=== PATIENT | female | born 1960 | race Caucasian/White ===

== ENCOUNTER 2016-07-04 21:54 | Emergency (ER) | payer OTHER ==
--- NOTE | ~2016-07-04 | CR72 ---
[facility] A Service of [facility] & [facility] RADIOLOGY TEXT RESULTS PATIENT: JONATAN PATINO LOCATION: [facility] : 62 UNIT #: [id number] AGE: [address]: Basilio Tatum MD SEX: F ORDER DR: [id number] [facility] [address] [place], [place] [address] [id number] E MR#: [id number] Acc #: [id number] NAME: JONATAN PATINO : 1960 SEX: F STUDY DATE/TIME: 07/04/2016 22:00 UNIT: [facility] ROOM: STUDY DESCRIPTION: CR Chest Single View Portable Attending Physician: Basilio Tatum M.D. Ordering Physician: Basilio Tatum M.D. Primary Care Physician: No Primary Care Physician MEDICAL IMAGING REPORT This report is preliminary unless electronic signature is present EXAM Portable chest 1 HISTORY Right flank pain and shortness of air today. FINDINGS A single AP portable view of the chest shows both lungs to be clear. The heart is normal in size. The mediastinal contour is normal. No significant bone abnormalities are seen. IMPRESSION Normal portable chest. Dictated by... Grant Cruz M.D. THIS IS AN ELECTRONICALLY VERIFIED REPORT Grant Cruz M.D. at 07/05/2016 9:13 AM PANCHO/naila TD: 07/05/2016 01:22 JOB #: [id number] MEDICAL IMAGING REPORT Page 1 of 1 COPY
--- NOTE | ~2016-07-04 | CT16 ---
[facility] A Service of [facility] RADIOLOGY TEXT RESULTS PATIENT: JONATAN PATINO LOCATION: [facility] : 62 UNIT #: [id number] AGE: [address]: Basilio Tatum MD SEX: F ORDER DR: [id number] [facility] [address] [place], [place] [address] [id number] E MR#: [id number] Acc #: [id number] NAME: JONATAN PATINO : 1960 SEX: F STUDY DATE/TIME: 07/05/2016 00:02 UNIT: [facility] ROOM: STUDY DESCRIPTION: CT Angio Chest for PE Attending Physician: Basilio Tatum M.D. Ordering Physician: Basilio Tatum M.D. Primary Care Physician: No Primary Care Physician MEDICAL IMAGING REPORT This report is preliminary unless electronic signature is present EXAM Chest CTA 07/05 at 0002 hours INDICATIONS Shortness of air with right-side chest pain for 2 days. Elevated D-dimer today. TECHNIQUE Axial images were obtained through the chest following IV contrast administration. 3-D reformats were obtained. This CT exam was performed with one or more of the following radiation dose reduction techniques: automatic control, adjustment of mA and/or kV according to patient size, and iterative reconstruction. No comparison chest CT. FINDINGS There is no pulmonary embolism or aortic dissection. There is no pericardial effusion. There is no adenopathy. There is a trace amount of right-side pleural fluid. No left pleural effusion is seen. There is emphysema. There is infiltrate in the right lower lobe which is probably a mild degree of pneumonia. The lungs otherwise are clear. There is a small hiatal hernia. The spleen appears mildly enlarged but unchanged from 03/20/2015 CT abdomen. IMPRESSION 1. No pulmonary embolism or aortic dissection. 2. Trace right pleural effusion with minimal amount of alveolar infiltrate in the posterior right lower lobe concerning for pneumonia. 3. The lungs are emphysematous but otherwise clear. 4. Small hiatal hernia. 5. Splenomegaly which does not appear significantly changed from an abdomen CT of 03/20/2015. Dictated by... [facility] A Service of [facility] RADIOLOGY TEXT RESULTS PATIENT: JONATAN PATINO LOCATION: [facility] : 62 UNIT #: [id number] AGE: [address]: Basilio Tatum MD SEX: F ORDER DR: Basilio De Oliveira Jr., M.D. THIS IS AN ELECTRONICALLY VERIFIED REPORT Basilio De Oliveira Jr., M.D. at 07/05/2016 6:01 AM WILLIAN/naila TD: 07/05/2016 05:23 JOB #: [id number] MEDICAL IMAGING REPORT Page 1 of 1 COPY
[2016-07-04 22:46] LABS: BASOPHIL% 0.4 % (0-2.5); EOSINOPHIL# 0.1 X10e3 (0-0.7); EOSINOPHIL% 0.9 % (0.0-7.0); HEMATOCRIT 40.1 % (35.0-45.0); HEMOGLOBIN 13.4 gm/dL (12.0-16.0); LYMPHOCYTE# 1.6 X10e3 (1.0-3.5); LYMPHOCYTE% 18.5 % (17.0-45.0); MEAN CELL VOLUME 86.1 FL (83-96); MEAN CORPUSCULAR HEMOGLOBIN 28.7 PG (28-34); MEAN CORPUSCULAR HGB CONC 33.4 g/dL (30-36); MONOCYTE# 0.8 X10e3 (0-1.0); MONOCYTE% 9.2 % (3.0-12.0); NEUTROPHIL# 6.1 X10e3 (1.5-7.1); PLATELET COUNT 174 X10e3 (140-420); RED BLOOD COUNT 4.66 X10e (3.90-5.30); RED CELL DISTRIBUTION WIDTH 14.7 % (11.0-15.5); WHITE BLOOD COUNT 8.6 X10e3 (4.0-10.5)
[2016-07-04 22:47] LABS: DIFF IND NO
[2016-07-04 22:55] LABS: URINE SOURCE CLEAN CATCH
[2016-07-04 22:58] LABS: URINE APPEARANCE CLEAR; URINE BILIRUBIN NEG (NEG); URINE BLOOD NEG (NEG); URINE COLOR YELLOW; URINE GLUCOSE NEG (NEG); URINE KETONE TRACE (NEG); URINE LEUKOCYTE ESTERASE NEG (NEG); URINE NITRATE NEG (NEG); URINE PH 6.5 (5-8); URINE PROTEIN NEG (NEG); URINE SPECIFIC GRAVITY 1.029 (1.003-1.035)
[2016-07-04 23:10] LABS: ALBUMIN SERUM 3.4 g/dL (3.5-5.0); BILIRUBIN, DIRECT 0.1 mg/dL (0.0-0.2); BILIRUBIN,INDIRECT 0.5 mg/dL (0.0-0.9); BILIRUBIN,TOTAL 0.6 mg/dL (0.2-2.0); CALCIUM SERUM 8.9 mg/dL (8.4-10.2); CREATININE SERUM 0.8 mg/dL (0.6-1.4); GLOM FILT RATE Estimated 83.1 mL/min (>60); POTASSIUM 3.7 mmol/L (3.5-5.1); PROTEIN TOTAL SERUM 8.2 g/dL (6.0-8.3)
== END 2016-07-05 02:20 | disposition home or self-care (01) ==
LOC: CED 21:54
PROVIDERS: Emergency Medicine
DX: J18.9 Pneumonia, unspecified organism (principal); R09.1 Pleurisy; F17.200 Nicotine dependence, unspecified, uncomplicated; Z88.0 Allergy status to penicillin
CPT/HCPCS: 36415; 71010; 71275; 80048; 80076; 81003; 83690; 85025; 85379; 96361; 96374; 99284; J1885; Q9967